=== PATIENT | female | born 1990 | race Caucasian/White ===

== ENCOUNTER 2018-09-29 04:09 | Emergency (ER) | payer MEDICAID ==
[~2018-09-29] VITALS: Ht 149.9 cm; Wt 130.0 kg
--- NOTE | 2018-09-29 04:23 | NUR ---
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 MONITORS APPLIED, SIDERAILS UP X2, CALL LIGHT WITHIN REACH. AWAITING ERP FOR EVAL AND ORDERS
[2018-09-29] MEDS ORDERED: ALBU2TAB PO (04:27)
--- NOTE | 2018-09-29 05:23 | NUR ---
PT RESTING WITH EYES CLOSED, NADN, EQUAL CHEST RISE/FALL OBSERVED, MONITORS IN PLACE, FAMILY AT BEDSIDE, CALL LIGHT WITHIN REACH.
--- NOTE | 2018-09-29 06:24 | NUR ---
PT RESTING WITH EYES CLOSED, OPENS EYES TO LOUD VERBAL RESPONSE AND QUICKLY FALLS BACK TO SLEEP. PT REPOSITIONED IN BED, MONITORS IN PLACE, SIDERAILS UP X2, CALL LIGHT WITHIN REACH.
[2018-09-29] MEDS ORDERED: ONDANSETRON 2MG/ML, 2ML ONE (06:55)
[2018-09-29] MEDS ORDERED: ONDANSETRON 2MG/ML, 2ML IM ONE (07:00)
[2018-09-29 07:03] VITALS: BP 114/81
--- NOTE | 2018-09-29 07:04 | NUR ---
REPORT GIVEN TO ESTEPHANIA POTTS
--- NOTE | 2018-09-29 08:50 | NUR ---
PT AMBULATED APPROX 50 FT WITHOUT ISSUE. PT DENIES DIZZINESS. STEADY GAIT. DR LEWIS AWARE
== END 2018-09-29 09:59 | disposition home or self-care (01) ==
LOC: ED 09:08
DX: F10.120 Alcohol abuse with intoxication, uncomplicated (principal); J45.909 Unspecified asthma, uncomplicated
CPT/HCPCS: 96372; 99283; J2405